=== PATIENT | female | born 1975 | race Caucasian/White ===

== ENCOUNTER → 2018-10-18 | Outpatient (CLI) | payer BC | LOC: SUN.DIA 09:21 | DX: O24.419 Gestational diabetes mellitus in pregnancy, unspecified control (principal); Z3A.29 29 weeks gestation of pregnancy | CPT/HCPCS: G0108 ==

== ENCOUNTER → 2018-10-25 | Outpatient (CLI) | payer BC | LOC: SUN.DIA 10:27 | DX: O24.419 Gestational diabetes mellitus in pregnancy, unspecified control (principal); Z3A.20 20 weeks gestation of pregnancy | CPT/HCPCS: G0108 ==

== ENCOUNTER → 2018-11-20 | Outpatient (CLI) | payer BC | LOC: SUN.DIA 11-15 15:22 | DX: O24.419 Gestational diabetes mellitus in pregnancy, unspecified control (principal); Z3A.32 32 weeks gestation of pregnancy | CPT/HCPCS: G0108 ==

== ENCOUNTER 2018-12-29 06:39 | Inpatient (IN) | payer BC ==
[2018-12-29] VITALS (38 sets, daily range): BP systolic 97–135; BP diastolic 53–90; PULSE 65–98; TEMP 97.3–98.1
[~2018-12-29] VITALS: Ht 157.5 cm; Wt 73.2 kg
--- NOTE | 2018-12-29 06:45 | NUR ---
Patient arrives via wheelchair accompanied by . Patient reports contractions every 5 minutes since 0200. Denies ROM and reports normal movement and a small amount of bloody show. Assisted into bed, patient utilizes cane to ambulate since diagnosis of acute transverse myelitis in January of 2018. Patient is able to move legs in bed easily. EFM explained and applied. VSS. 0655- SVE 6/80/-3 with bloody show noted upon exam. Patient repositioned WL and updated on plan of care. Dr. Cevallos notified as records indicate. Physician will discuss with ventilation mechanic physician and determine plan of care for . Patient has had 3 sections following by 4 home VBACS. Patient does not desire epidural or pain medications. 0710- IV started in L hand. Labs obtained. Saline locked per patient request. Consents explained and signed. Patient denies questions. Assessment completed. See physician notification. 9415- Dr. Contreras at bedside to review plan of care. Patient counseled on Pitocin, patient refuses at this time. Physician remains on unit. Patient encouraged to notify RN with increased pressure. 0800- Blood glucose 87. Physician notified. Orders to not check any more blood sugars while in labor.
[2018-12-29] MEDS ORDERED: PRENATAL (07:42)
[2018-12-29] MEDS ORDERED: OMEGA-31 SGL PO (07:43)
[2018-12-29 08:04] LABS: BASO # 0.1 (0.0-0.2); BASO % 0.9 % (0.0-2.0); EOS # 0.1 (0.0-0.7); EOS % 1.7 % (0-4.0); GRAN # 5.6 (1.4-6.5); GRAN % 71.1 % (42.2-75.2); HEMOGLOBIN 12.7 g/dl (12.5-16.0); LYMPH # 1.4 (1.2-3.4); LYMPH % 17.5 % (20.0-51.0); MEAN CELL VOLUME 82 fl (80.0-100.0); MEAN CORPUSCULAR HEMOGLOBIN 26 pg (27.0-31.0); MEAN CORPUSCULAR HGB CONC 32 g/dl (33.0-37.0); MEAN PLATELET VOLUME 9.9 fl (7.4-10.4); MONO # 0.7 (0.1-0.6); MONO % 8.4 % (1.7-9.3); PLATELET COUNT 267 K/mm3 (130-400); RED BLOOD COUNT 4.89 M/mm3 (4.10-5.30); REDCELL DISTRIBUTION WIDTH-CV 18.2 % (11.5-14.5)
--- NOTE | 2018-12-29 12:50 | NUR ---
Patient reports contractions are becoming much more intense. Leaning over birthing ball. Difficulty tracing FHR continuously due to maternal movement and position. Patient does not want SVE at this time. Encouraged to notify RN with increased pressure.
--- NOTE | 2018-12-29 14:05 | NUR ---
1405- Patient reports urge to push. Bearing down with contractions. Dr. Contreras notified, at bedside. Patient continues to bear down with contractions.
--- NOTE | 2018-12-29 14:35 | NUR ---
1438- Patient pushing in LL position. SROM noted, scant amount of clear fluid. Pericare given. Physician remains at bedside. 1455- Patient repositioned and pushing in SF position. 1500- AROM of forebag by Dr. Contreras for moderate amount of lightly stained meconium fluid. Pericare given. Nursery RN notified. Patient continues pushing.
--- NOTE | 2018-12-29 15:50 | NUR ---
1550- of viable female infant attended by Dr. Contreras. Infant to mother's abdomen and care of to Vazquez Rand RN. Apgars 7/8/9. Infant to warmer for assessment. Nuchal cord x1 noted. 1603- Spontaneous delivery of placenta. Patient refuses Pitocin . Fundal massage by RN, firm at umbilicus. Perineum intact. Pericare given and ice pack applied. Patient updated on plan of care and safety reviewed.
[2018-12-30 00:40] VITALS: BP 100/57; PULSE 86
[2018-12-30 08:00] VITALS: BP 111/64; PULSE 86; TEMP 97.8
--- NOTE | 2018-12-30 18:40 | NUR ---
Pt discharged home escorted by staff and with pt in a wheelchair per pt's request. Pt home via private vehicle with in rear facing car seat secured by parents.
== END 2018-12-30 18:40 | disposition home or self-care (01) | DRG 806 ==
LOC: LDR 06:39 → LDRO 06:39 → LDR 08:29 → OB 17:47
PROVIDERS: ADMIT Obstetrics & Gynecology
PROC: 10E0XZZ Delivery of Products of Conception, External Approach (ICD-10-PCS; principal; 2018-12-29)
DX: O34.211 Maternal care for low transverse scar from previous cesarean delivery (principal); G37.3 Acute transverse myelitis in demyelinating disease of central nervous system; Z37.0 Single live birth; O75.89 Other specified complications of labor and delivery; O69.81X0 Labor and delivery complicated by cord around neck, without compression, not applicable or unspecified; Z3A.39 39 weeks gestation of pregnancy; O24.420 Gestational diabetes mellitus in childbirth, diet controlled